=== PATIENT | male | born 1965 | race Caucasian/White ===

== ENCOUNTER 2023-01-19 13:27 | Outpatient (CLI) | payer OTHER, SELFPAY | END 2023-01-19 13:28 | disposition home or self-care (01) | LOC: INJ CL 13:29 | PROVIDERS: PCP Family Medicine; Visit Provider Family Medicine | DX: M54.16 Radiculopathy, lumbar region (principal); M51.36 Other intervertebral disc degeneration, lumbar region | CPT/HCPCS: 64483; 64484; J1100; Q9966 ==